=== PATIENT | female | born 2000 | race Caucasian/White ===

== ENCOUNTER 2020-01-28 13:18 | Emergency (ER) | payer SELFPAY ==
[2020-01-28 13:19] VITALS: BP 123/82; PULSE 118; RESP 18; TEMP 37.3; O2SAT 98; BMI 27.4
[2020-01-28 14:08] LABS: Rapid Strep A Test Negative (Negative)
--- NOTE | 2020-01-28 14:35 | CTR_ITS ---
PROCEDURE INFORMATION: Exam: CT Neck With Contrast Exam date and time: 01/28/2020 3:48 PM Age: 19 years old Clinical indication: Painful swallowing and throat pain; Patient HX: C/O sore throat w difficulty swallowing n/v TECHNIQUE: Imaging protocol: Computed tomography images of the neck with intravenous contrast. Radiation optimization: All CT scans at this facility use at least one of these dose optimization techniques: automated exposure control; mA and/or kV adjustment per patient size (includes targeted exams where dose is matched to clinical indication); or iterative reconstruction. Contrast material: OMNI 300; Contrast volume: 95 ml; Contrast route: INTRAVENOUS (IV); COMPARISON: No relevant prior studies available. RADIATION DOSE METRICS: Total DLP (mGy-cm): 580.23 FINDINGS: Sinuses: Mild chronic left maxillary sinusitis. Nasopharynx: Unremarkable. Dental: Incidental note of a dental hubert right 2nd maxillary molar. Oropharynx: Evidence of bilateral palatine tonsillitis without peritonsillar abscess. Both palatine tonsils demonstrate increased enhancement increased volume, left greater than right. Left palatine tonsil measures approximately 34 mm x 18 mm x 20 mm and the right 29 mm x 14 mm x 18 mm. Hypopharynx: Unremarkable. Larynx: Unremarkable. Normal epiglottis. Retropharyngeal space: Unremarkable. Submandibular/Parotid glands: Normal. Glands are normal in size. Thyroid: Normal. No enlarged or calcified nodules. Lymph nodes: Unremarkable. No lymphadenopathy. Trachea: Visualized trachea is unremarkable. Lungs: Unremarkable as visualized. Bones/joints: Scoliosis. No visible evidence of active osseous pathology. Soft tissues: Unremarkable. No significant soft tissue swelling. Other findings: Evidence of mild esophagitis. CT/CT neck w con* [id number] IMPRESSION: 1. Bilateral palatine tonsillitis without peritonsillar abscess. 2. Evidence of mild esophagitis. 3. Incidental note of a dental hubert right 2nd maxillary molar. Radiation Dose CTDIVOL = (mGy): DLP = 580.23 (mGy-cm)
--- NOTE | 2020-01-28 14:39 | ED_ITS ---
HPI - Fever General: Chief Complaint: Fever Stated Complaint: vomiting blood Time Seen by Provider: 01/28/20 14:31 Source: patient Mode of arrival: ambulatory Limitations: no limitations History of Present Illness: HPI Narrative: 19-year-old female states she had a sore throat along with fever over the last 2 days. She has had difficulty swallowing due to pain. She has had fevers as well. States she had 2 episodes of vomiting and states she thinks she had a small amount of blood in her vomitus today. Denies any diarrhea. Denies any worsening or improving factors. MD elicited complaint: fever Associated symptoms: Deny abdominal pain, chills, chest pain, diarrhea, dysuria, headache(s), nausea or vomiting Review of Systems Const: Denies: fever(s), chills, body aches or change in appetite Eyes: Denies: blurry vision or eye discomfort ENMT: Reports: throat pain Card: Denies: chest pain Resp: Denies: dyspnea GI: Denies: abdominal pain, nausea, vomiting or diarrhea : Denies: dysuria Musc: Denies: neck pain or back pain Skin/Breast: Denies: rash Neuro: Denies: headache(s) Psych: Denies: depression Prince/Lymph: Denies: easy bruising All/Imm: Denies: urticaria Physical Exam Const: COMMON NORMALS: no acute distress, patient oriented x3 and healthy appearing HENMT: COMMON NORMALS: normocephalic and atraumatic HEAD & SCALP: normocephalic and atraumatic Eye: COMMON NORMALS: Equal, round and reactive pupils present and EOMs intact bilaterally PUPIL: Yes Equal, round and reactive pupils present Neck/C-Spine: COMMON NORMALS: full ROM and supple Chest: COMMONS NORMALS: normal inspection of the chest and normal palpation of entire chest wall Resp: COMMON NORMALS: normal respiratory effort, No retractions, No use of accessory muscles and clear to auscultation bilaterally AUSCULTATION: clear to auscultation bilaterally Cardio: COMMON NORMALS: regular rate, regular rhythm and No murmurs present (Cardio) RATE: regular rate RHYTHM: regular rhythm GI: COMMON NORMALS: Normal to inspection, nondistended, normoactive bowel sounds present, Soft to palpation, non-tender and no masses PALPATION: Yes Soft to palpation Extremity: COMMON NORMALS: normal to inspection and full ROM Neuro: COMMON NORMALS: patient oriented x3, moves all extremities and no focal motor deficits Psych: COMMON NORMALS: mental status grossly normal, Normal thought process present and cooperative THOUGHT PROCESS: Normal thought process present Skin: COMMON NORMALS: no rashes or lesions noted and no wounds GENERAL SKIN EXAM: no rashes or lesions noted Course Vital Signs: Vital signs: Vital Signs Temperature 99.5 F 01/28/20 14:47 Pulse Rate 109 H 01/28/20 14:47 Respiratory Rate 18 01/28/20 15:03 Blood Pressure 122/84 01/28/20 14:47 Pulse Oximetry 97 01/28/20 14:47 MDM - Fever MDM Narrative: Medical decision making narrative: Pricila presents here with neck pain and CT does show a tonsillitis. We will give her Decadron along with antibiotics. She has no abscess formation. Patient is able to tolerate p.o. here. Patient is to follow-up with PCP in 3 to 5 days and return if worsening. Lab Data: Labs: Lab Results 01/28/20 01/28/20 01/28/20 Range/Units 13:31 14:50 14:50 WBC 10.7 (4.5-13.0) 10^3/ uL RBC 5.16 (4.1-5.3) 10^6/u L Hgb 15.3 (11.5-15.3) g/dL Hct 44.6 (37.0-47.0) % MCV 86.4 (81-99) fL MCH 29.7 (28.0-34.0) pg MCHC 34.3 (30.0-36.0) g/dL RDW 11.6 L (12.1-15.1) % Plt Count 229 (130-400) 10^3/c mm MPV 10.3 (7.4-10.4) fL Neut % (Auto) 68.3 % Lymph % (Auto) 19.6 % Barton % (Auto) 11.3 % Eos % (Auto) 0.1 % Baso % (Auto) 0.5 % Neut # (Auto) 7.34 (1.8-8.0) 10^3/u L Lymph # (Auto) 2.1 (1.5-6.5) 10^3/u L Barton # (Auto) 1.2 H (0.2-0.9) 10^3/u L Eos # (Auto) 0.0 (0.0-0.8) 10^3/u L Baso # (Auto) 0.1 (0.0-0.1) 10^3/u L Nucleated RBC % (a uto) 0 % Nucleated RBCs # 0.0 /100WBC Sodium 134 L (136-145) mmol/L Potassium 3.5 (3.5-5.1) mmol/L Chloride 100 (98-107) mmol/L Carbon Dioxide 19 L (22-29) mmol/L Anion Gap 18.5 (5-19) BUN 13 (6-20) mg/dL Creatinine 0.8 (0.5-0.9) mg/dL GFR Calculation 92.4 (90-130) mL/min Glucose 81 (65-115) mg/dL Calculated Osmolal ity 273 L (285-295) mOsm/k g Calcium 9.2 (8.5-10.5) mg/dL Total Bilirubin 0.3 (0.15-1.2) mg/dL AST 14 (0-32) U/L ALT 10 (0-33) U/L Alkaline Phosphata se 66 (35-105) IU/L Total Protein 8.2 (6.6-8.7) g/dL Albumin 4.3 (3.5-5.2) g/dL Globulin 3.9 (1.3-4.6) g/dL Lipase 25 (13-60) U/L HCG, Qual (Negative) Monoscreen (Negative) Group A Strep Rapi d Negative (Negative) 01/28/20 01/28/20 Range/Units 14:50 14:50 WBC (4.5-13.0) 10^3/ uL RBC (4.1-5.3) 10^6/u L Hgb (11.5-15.3) g/dL Hct (37.0-47.0) % MCV (81-99) fL MCH (28.0-34.0) pg MCHC (30.0-36.0) g/dL RDW (12.1-15.1) % Plt Count (130-400) 10^3/c mm MPV (7.4-10.4) fL Neut % (Auto) % Lymph % (Auto) % Barton % (Auto) % Eos % (Auto) % Baso % (Auto) % Neut # (Auto) (1.8-8.0) 10^3/u L Lymph # (Auto) (1.5-6.5) 10^3/u L Barton # (Auto) (0.2-0.9) 10^3/u L Eos # (Auto) (0.0-0.8) 10^3/u L Baso # (Auto) (0.0-0.1) 10^3/u L Nucleated RBC % (a uto) % Nucleated RBCs # /100WBC Sodium (136-145) mmol/L Potassium (3.5-5.1) mmol/L Chloride (98-107) mmol/L Carbon Dioxide (22-29) mmol/L Anion Gap (5-19) BUN (6-20) mg/dL Creatinine (0.5-0.9) mg/dL GFR Calculation (90-130) mL/min Glucose (65-115) mg/dL Calculated Osmolal ity (285-295) mOsm/k g Calcium (8.5-10.5) mg/dL Total Bilirubin (0.15-1.2) mg/dL AST (0-32) U/L ALT (0-33) U/L Alkaline Phosphata se (35-105) IU/L Total Protein (6.6-8.7) g/dL Albumin (3.5-5.2) g/dL Globulin (1.3-4.6) g/dL Lipase (13-60) U/L HCG, Qual Negative (Negative) Monoscreen Negative (Negative) Group A Strep Rapi d (Negative) Imaging Data^: Other CT: Attestation: I personally reviewed and interpreted this imaging study as follows: Radiologist's impression: [address] [address] [address] Scan Report Signed Patient: Pricila Luciano Unit #: [id number] : 2000 Age/Sex: 19 / F ADM Date: 01/28/20 Loc: ER Room/Bed: Attending Dr: Ordering Provider/Ordering MD: Bailey Fuller MD Date of Service: 01/28/20 Procedure(s): CT neck w con* [id number] Accession Number(s): [id number] Report Number: [id number] PROCEDURE INFORMATION: Exam: CT Neck With Contrast Exam date and time: 01/28/2020 3:48 PM Age: 19 years old Clinical indication: Painful swallowing and throat pain; Patient HX: C/O sore throat w difficulty swallowing n/v TECHNIQUE: Imaging protocol: Computed tomography images of the neck with intravenous contrast. Radiation optimization: All CT scans at this facility use at least one of these dose optimization techniques: automated exposure control; mA and/or kV adjustment per patient size (includes targeted exams where dose is matched to clinical indication); or iterative reconstruction. Contrast material: OMNI 300; Contrast volume: 95 ml; Contrast route: INTRAVENOUS (IV); COMPARISON: No relevant prior studies available. RADIATION DOSE METRICS: Total DLP (mGy-cm): 580.23 FINDINGS: Sinuses: Mild chronic left maxillary sinusitis. Nasopharynx: Unremarkable. Dental: Incidental note of a dental hubert right 2nd maxillary molar. Oropharynx: Evidence of bilateral palatine tonsillitis without peritonsillar abscess. Both palatine tonsils demonstrate increased enhancement increased volume, left greater than right. Left palatine tonsil measures approximately 34 mm x 18 mm x 20 mm and the right 29 mm x 14 mm x 18 mm. Hypopharynx: Unremarkable. Larynx: Unremarkable. Normal epiglottis. Retropharyngeal space: Unremarkable. Submandibular/Parotid glands: Normal. Glands are normal in size. Thyroid: Normal. No enlarged or calcified nodules. Lymph nodes: Unremarkable. No lymphadenopathy. Trachea: Visualized trachea is unremarkable. Lungs: Unremarkable as visualized. Bones/joints: Scoliosis. No visible evidence of active osseous pathology. Soft tissues: Unremarkable. No significant soft tissue swelling. Other findings: Evidence of mild esophagitis. CT/CT neck w con* [id number] IMPRESSION: 1. Bilateral palatine tonsillitis without peritonsillar abscess. 2. Evidence of mild esophagitis. 3. Incidental note of a dental hubert right 2nd maxillary molar. Discharge Plan Discharge Patient Disposition: Home Clinical Impression: Acute infective tonsillitis Qualifiers: Pharyngitis/tonsillitis etiology: unspecified etiology Qualified Code(s): J03.90 - Acute tonsillitis, unspecified Condition: Stable Prescriptions: New Keflex 500 mg capsule 500 mg PO Q6H 7 Days Qty: 28 RF: 0 No Action Tylenol 325 mg Tablet 325 mg PO QID PRN (Reason: Pain) RF: 0 Zyrtec 10 mg Tablet 10 mg PO DAILY RF: 0 Discharge Orders: Discharge Order (Routine); Ordered 01/28/20 Ordered By: Bailey Fuller Referrals: Alton Molina MD [Primary Care Provider] - 1-3 days Discharge Diet: Advance as tolerated Discharge Activity: Resume usual activity Patient Instructions: Tonsillitis (ED) Coding Level of Care Code ED 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
[2020-01-28 14:47] VITALS: BP 122/84; PULSE 109; RESP 20; TEMP 37.5; O2SAT 97
[2020-01-28 14:59] LABS: Basophils # 0.1 10^3/uL (0.0-0.1); Basophils % 0.5 %; Eosinophils % 0.1 %; Hematocrit 44.6 % (37.0-47.0); Hemoglobin 15.3 g/dL (11.5-15.3); Lymphocytes # 2.1 10^3/uL (1.5-6.5); Lymphocytes % 19.6 %; Mean Corpuscular HGB Conc 34.3 g/dL (30.0-36.0); Mean Corpuscular Hemoglobin 29.7 pg (28.0-34.0); Mean Corpuscular Volume 86.4 fL (81-99); Mean Platelet Volume 10.3 fL (7.4-10.4); Monocytes # 1.2 10^3/uL (0.2-0.9); Monocytes % 11.3 %; Neutrophils # 7.34 10^3/uL (1.8-8.0); Neutrophils % 68.3 %; Nucleated Red Blood Cells % 0 %; Platelet Count 229 10^3/cmm (130-400); Red Blood Count 5.16 10^6/uL (4.1-5.3); Red Cell Distribution Width 11.6 % (12.1-15.1); White Blood Count 10.7 10^3/uL (4.5-13.0)
[2020-01-28] MEDS: ondansetron 2 mg/ML SDV 2 mL 4 MG IVP (15:02)
[2020-01-28 15:03] VITALS: RESP 18
[2020-01-28] MEDS: morphine 4 mg/mL SDV 1 mL IVP (15:03)
[2020-01-28] MEDS: sodium chloride 0.9% 1,000 ML 999 ML IV ×2 (15:04→15:53)
[2020-01-28 15:10] LABS: HCG, Serum Qual Negative (Negative)
[2020-01-28 15:23] LABS: Alanine Aminotransferase 10 U/L (0-33); Albumin Level 4.3 g/dL (3.5-5.2); Alkaline Phosphatase 66 IU/L (35-105); Anion Gap 18.5 (5-19); Aspartate Amino Transferase 14 U/L (0-32); Blood Urea Nitrogen 13 mg/dL (6-20); Calcium 9.2 mg/dL (8.5-10.5); Carbon Dioxide 19 mmol/L (22-29); Chloride 100 mmol/L (98-107); Globulin 3.9 g/dL (1.3-4.6); Glomerular Filtration Rate 92.4 mL/min (90-130); Glucose 81 mg/dL (65-115); Lipase 25 U/L (13-60); Osmolality Calculated 273 mOsm/kg (285-295); Potassium 3.5 mmol/L (3.5-5.1); Sodium 134 mmol/L (136-145); Total Bilirubin 0.3 mg/dL (0.15-1.2); Total Protein 8.2 g/dL (6.6-8.7)
[2020-01-28 15:24] LABS: Monoscreen Negative (Negative)
[2020-01-28] MEDS: iohexol 300 mg/mL 100 mL Btl IV (16:00)
[2020-01-28] MEDS: dexamethasone 10 mg/mL INJ IVP (16:46)
[2020-01-28 16:50] VITALS: BP 112/79; PULSE 97; RESP 17; O2SAT 100
[2020-01-28 16:56] LABS: Add Urine Microscopic? YES; Bilirubin Urine Neg (NEGATIVE); Blood Urine Neg (Negative); Glucose Urine UA Norm (Normal); Ketones Urine 2+ (Negative); Leukocyte Esterase Urine Negative (Negative); Nitrate Urine Negative (Negative); Protein Urine Trace (Negative); Urine Appearance Clear (CLEAR); Urine Color Yellow (Yellow); Urobilinogen Urine 1 mg/dL (Negative); pH Urine 5 (5-7)
[2020-01-28 16:58] LABS: Bacteria Urine TRACE; Mucus Urine 2+; Squamous Epithelial Cell Urine 0-4 (0-5)
[2020-01-28 16:59] LABS: Add Urine Culture? No
== END 2020-01-28 16:56 | disposition home or self-care (01) ==
PROVIDERS: Emergency Provider Emergency Medicine; PCP General Practice
DX: J03.90 Acute tonsillitis, unspecified (principal)
CPT/HCPCS: 12345; 70491; 80053; 81001; 83690; 84703; 85025; 86308; 87081; 87880; 96360; 96361; 96374; 96375; 99283; 99284; J1100; J2270; J2405; J7030; Q9967

== ENCOUNTER 2020-02-02 16:16 | Emergency (ER) | payer SELFPAY ==
[2020-02-02] VITALS (8 sets, daily range): BP systolic 112–128; BP diastolic 74–91; PULSE 61–107; RESP 16–18; TEMP 37.2; O2SAT 95–100; BMI 24.7
--- NOTE | 2020-02-02 16:31 | ECG_ITS ---
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 Measurements Intervals [place] Rate: 85 P: 58 MO: 131 QRS: 87 QRSD: 80 T: -36 QT: 346 QTc: 413 Interpretive Statements SINUS RHYTHM MODERATE T-WAVE ABNORMALITY, CONSIDER ANTERIOR ISCHEMIA MODERATE T-WAVE ABNORMALITY, CONSIDER INFERIOR ISCHEMIA Compared to ECG 10/16/2018 21:57:51 Possible ischemia now present Sinus arrhythmia no longer present T-wave abnormality still present Electronically Signed On 02-02-2020 20:10:08 CDT by Qi Sage M.D. [email or web address]
--- NOTE | 2020-02-02 16:32 | USR_ITS ---
PROCEDURE INFORMATION: Exam: US Abdomen, Limited; Right Upper Quadrant Exam date and time: 02/02/2020 5:14 PM Age: 19 years old Clinical indication: Abdominal pain; Acute; Patient HX: Been n/v for several days. TECHNIQUE: Imaging protocol: US abdomen. Real time ultrasound with image documentation. Limited exam focused on the right upper quadrant. COMPARISON: No relevant prior studies available. FINDINGS: Liver: Normal. No masses. The liver measures in length. Gallbladder: Normal. No gallstones. There is no gallbladder wall thickening. There is a negative sonographic Poole's sign. Common bile duct: Normal. No stones. No dilation. Pancreas: Visualized pancreas is unremarkable. Right kidney: Normal. No mass. No hydronephrosis. US/US gall bladder [id number] IMPRESSION: No acute findings.
--- NOTE | 2020-02-02 16:42 | W.ED.GENADLT ---
HPI - General Adult General: Chief complaint: General Medical Stated complaint: vomiting/abd pain Time Seen by Provider: 02/02/20 16:24 Source: patient Mode of arrival: ambulatory Limitations: no limitations History of Present Illness: HPI narrative: Pricila is a nice 19-year-old female who comes in complaining of throat pain, vomiting, chest pain, and upper abdominal pain. Her symptoms is been present for 8 days. Patient was seen here and diagnosed with tonsillitis and placed on Keflex 6 days ago. She states since that time her symptoms have gotten worse with worsening abdominal pain and vomiting. Her throat still hurts and she states she still has significant nausea and vomiting and occasional chest pain. Anytime she eats or drinks makes her symptoms worse. She still has a subjective fever. She got a dose of Decadron and was placed on Keflex but she stopped the Keflex makes her abdominal pain and chest pain worse. Patient states she feels weak and dehydrated. She denies any other complaints at this time. Associated symptoms: Reports chest pain, nausea and vomiting; Deny confusion, diaphoresis, dyspnea, headache(s), malaise, rash, palpitations or syncope Review of Systems Const: Reports: fever(s) and chills; Denies: body aches, fatigue, malaise or diaphoresis Eyes: Denies: change in vision, blurry vision, photophobia, eye discomfort, eye discharge or eye redness ENMT: Reports: throat pain; Denies: odynophagia, hoarseness, swelling of lips/tongue, ear or mastoid pain, ear discharge, change in hearing or nasal discharge Card: Reports: chest pain; Denies: palpitations, irregular heart rhythm, edema, lightheadedness, syncope, pre-syncope, dyspnea on exertion or orthopnea Resp: Denies: dyspnea, productive cough, non-productive cough, wheezing, hemoptysis or chest congestion GI: Reports: abdominal pain, nausea and vomiting; Denies: hematemesis, coffee ground emesis, heartburn, diarrhea, constipation, GI cramping, hematochezia or melena : Denies: flank pain, dysuria, urinary frequency, urinary urgency or hematuria Musc: Denies: neck pain, back pain, extremity pain, extremity swelling, joint pain, joint swelling, joint redness, joint warmth or joint stiffness Skin/Breast: Denies: rash, pruritus, erythema or skin tenderness Neuro: Denies: headache(s), numbness in extremities, weakness in extremities, sensory changes, lack of coordination, difficulty walking, dizziness, vertigo, confusion, Slurred speech present or seizure-like activity Prince/Lymph: Denies: easy bruising, easy bleeding, petechiae, purpura or enlarged lymph nodes All/Imm: Denies: urticaria, throat swelling, tongue swelling, facial swelling or acute wheezing PFSH ED PFSH: Medical History (Updated 02/02/20 @ 22:52 by Rashida Lemon) No pertinent past medical history Surgical History (Updated 02/02/20 @ 16:43 by Rashida Lemon) No pertinent past surgical history Physical Exam Const: COMMON NORMALS: no acute distress, patient oriented x3, no limitations, healthy appearing and well nourished GENERAL APPEARANCE: cooperative, well kempt and well developed HENMT: COMMON NORMALS: normocephalic, atraumatic, external ears normal, EAC's normal and Normal external nose present HEAD & SCALP: normal to inspection, normocephalic and atraumatic FACE & SINUS: normal facial exam and face symmetric NOSE: Normal external nose present and Normal nares present EXTERNAL EAR: Yes external ears normal EXTERNAL AUDITORY CANAL: EAC's normal MOUTH: Normal oral and palatal mucosa present, lip normal, tongue normal and other (Mild erythema in the posterior soft palate. No sign of peritonsillar abscess. No evidence of retropharyngeal abscess. Voice normal without hot potato voice or sign of laryngitis.) Eye: COMMON NORMALS: Equal, round and reactive pupils present and conjunctivae normal GENERAL EYE: appearance normal, both eyes and all related structures ALIGNMENT: Yes alignment normal PERIORBITAL: periorbital findings normal EYELID: eyelids normal CONJUNCTIVA: Yes conjunctivae normal SCLERA: sclerae normal PUPIL: Yes Equal, round and reactive pupils present Neck/C-Spine: COMMON NORMALS: full ROM, no lymphadenopathy, supple, no meningeal signs and no JVD GENERAL: Yes normal visual inspection and Yes trachea midline Chest: COMMONS NORMALS: normal inspection of the chest and normal palpation of entire chest wall Resp: COMMON NORMALS: normal respiratory effort, No retractions, No use of accessory muscles and clear to auscultation bilaterally EFFORT & INSPECTION: Yes able to speak in complete sentences and Yes symmetric chest movement AUSCULTATION: clear to auscultation bilaterally, no crackles, no rales, no rhonchi and no wheezes Cardio: COMMON NORMALS: no JVD, regular rate, regular rhythm, S1 normal heart sound present and S2 normal heart sound present RATE: regular rate RHYTHM: regular rhythm HEART SOUNDS: S1 normal heart sound present, S2 normal heart sound present, no click, no gallops, no murmurs, no rubs and abnormal split S2 GI: COMMON NORMALS: Soft to palpation and No hepatosplenomegaly present PALPATION: Yes Soft to palpation, No Tenderness to palpation present (GI), No Guarding due to palpation present (GI), No Rigid due to palpation, Yes No hepatosplenomegaly present, No Hernia present, No Palpable mass present and No Pulsatile mass present : COMMON NORMALS: Yes no CVA tenderness BLADDER/KIDNEY EXAM: Yes no CVA tenderness EXTERNAL FEMALE EXAM: No Hernia present Back/Pelvis: COMMON NORMALS: no CVA tenderness, thoracic and lumbar spine normal to inspection, no thoracic nor lumbar tenderness and thoraco-lumbar ROM normal Extremity: COMMON NORMALS: normal to inspection, full ROM, capillary refill normal, no joint enlargement, no clubbing, cyanosis or edema and no calf tenderness Neuro: COMMON NORMALS: patient oriented x3, CN's II-XII intact bilaterally, moves all extremities, no focal motor deficits and no sensory deficits noted MENINGEAL SIGNS: Yes no meningeal signs SPEECH: speech normal Psych: COMMON NORMALS: mental status grossly normal, Normal thought process present, cooperative, normal affect, speech normal and activity/motor behavior normal APPEARANCE: Yes well kempt SPEECH: Yes normal speech THOUGHT PROCESS: Normal thought process present Skin: COMMON NORMALS: no rashes or lesions noted, turgor normal, no jaundice, no petechiae and no mottling GENERAL SKIN EXAM: no rashes or lesions noted and turgor normal Course Vital Signs: Vital signs: Vital Signs Temperature 99.0 F 02/02/20 16:23 Pulse Rate 82 02/02/20 23:01 Respiratory Rate 16 02/02/20 23:01 Blood Pressure 112/74 02/02/20 23:01 Pulse Oximetry 98 02/02/20 23:01 MDM - General Adult MDM Narrative: Medical decision making narrative: Pricila symptoms were difficult to pin down but I saw no evidence of obvious clinical explanation of her EKG changes. I still see no definite cause although I did review the EKG with Dr. Garnica who states the patient likely has normal inverted juvenile T waves just in a very at more advanced than most. There is no sign of myocarditis as the patient's troponins have been negative x2. Clinically she did not appear to have a [employer] but as Dr. Fuller had imaged her previously I felt we should image this again but it shows no change. Lymphadenopathy could be reactive to her esophagitis and acid but I will cover her with Zithromax as she is not tolerating Keflex at all. I believe the nausea and vomiting is likely reflux disease and she responded well to a GI cocktail here. I am going to place her on Protonix and have her follow-up with Dr. Ochoa for an EGD. At this time I see no life limb threatening illness and the patient was given instructions on esophagitis. Patient agrees to return should her symptoms change or worsen but at this time she is feeling better would like to be discharged. Lab Data: Attestation: I reviewed the patient's lab results. Labs: Lab Results 02/02/20 02/02/20 02/02/20 Range/Units 17:30 17:30 17:30 WBC 10.1 (4.5-13.0) 10^3/ uL RBC 5.08 (4.1-5.3) 10^6/u L Hgb 14.9 (11.5-15.3) g/dL Hct 43.6 (37.0-47.0) % MCV 85.8 (81-99) fL MCH 29.3 (28.0-34.0) pg MCHC 34.2 (30.0-36.0) g/dL RDW 11.5 L (12.1-15.1) % Plt Count 358 (130-400) 10^3/c mm MPV 10.0 (7.4-10.4) fL Neut % (Auto) 62.8 % Lymph % (Auto) 29.3 % [place] % (Auto) 5.3 % Eos % (Auto) 1.4 % Baso % (Auto) 0.5 % Neut # (Auto) 6.34 (1.8-8.0) 10^3/u L Lymph # (Auto) 3.0 (1.5-6.5) 10^3/u L [place] # (Auto) 0.5 (0.2-0.9) 10^3/u L Eos # (Auto) 0.1 (0.0-0.8) 10^3/u L Baso # (Auto) 0.1 (0.0-0.1) 10^3/u L Nucleated RBC % (a uto) 0 % Nucleated RBCs # 0.0 /100WBC ESR (0-15) mm/hr D-Dimer (0-0.59) ug/mIFE U Sodium 141 (136-145) mmol/L Potassium 3.5 (3.5-5.1) mmol/L Chloride 100 (98-107) mmol/L Carbon Dioxide 21 L (22-29) mmol/L Anion Gap 23.5 H (5-19) BUN 16 (6-20) mg/dL Creatinine 0.6 (0.5-0.9) mg/dL GFR Calculation 128.8 (90-130) mL/min Glucose 73 (65-115) mg/dL Calculated Osmolal ity 287 (285-295) mOsm/k g Calcium 9.0 (8.5-10.5) mg/dL Total Bilirubin 0.5 (0.15-1.2) mg/dL AST 12 (0-32) U/L ALT 12 (0-33) U/L Alkaline Phosphata se 59 (35-105) IU/L Troponin T Baselin e (0-10) ng/L Troponin T 120 Min [place] (0-10) ng/L Delta Troponin T (0-10) ABS# C-Reactive Protein 20.2 H (0.0-4.9) mg/L NT-Pro-B Natriuret Pep (0-125) pg/mL Total Protein 8.3 (6.6-8.7) g/dL Albumin 4.3 (3.5-5.2) g/dL Globulin 4.0 (1.3-4.6) g/dL Lipase 36 (13-60) U/L HCG, Qual Negative (Negative) Urine Color (Yellow) Urine Appearance (CLEAR) Urine pH (5-7) Ur Specific Gravit y (1.005-1.030) Urine Protein (Negative) Urine Glucose (UA) (Normal) Urine Ketones (Negative) Urine Blood (Negative) Urine Nitrate (Negative) Urine Bilirubin (NEGATIVE) Urine Urobilinogen (Negative) mg/dL Ur Leukocyte Amanda ase (Negative) Urine RBC (0-2) /hpf Urine WBC (0-5) /hpf Ur Squamous Epith Cells (0-5) Amorphous Sediment Urine Bacteria (NONE) Urine Mucus H. pylori IgG Anti body (Negative) Monoscreen (Negative) SARS-CoV-2 Ag (Rap id) (Negative) Group A Strep Rapi d (Negative) 02/02/20 02/02/20 02/02/20 Range/Units 17:30 17:30 17:30 WBC (4.5-13.0) 10^3/ uL RBC (4.1-5.3) 10^6/u L Hgb (11.5-15.3) g/dL Hct (37.0-47.0) % MCV (81-99) fL MCH (28.0-34.0) pg MCHC (30.0-36.0) g/dL RDW (12.1-15.1) % Plt Count (130-400) 10^3/c mm MPV (7.4-10.4) fL Neut % (Auto) % Lymph % (Auto) % [place] % (Auto) % Eos % (Auto) % Baso % (Auto) % Neut # (Auto) (1.8-8.0) 10^3/u L Lymph # (Auto) (1.5-6.5) 10^3/u L [place] # (Auto) (0.2-0.9) 10^3/u L Eos # (Auto) (0.0-0.8) 10^3/u L Baso # (Auto) (0.0-0.1) 10^3/u L Nucleated RBC % (a uto) % Nucleated RBCs # /100WBC ESR 79 H (0-15) mm/hr D-Dimer (0-0.59) ug/mIFE U Sodium (136-145) mmol/L Potassium (3.5-5.1) mmol/L Chloride (98-107) mmol/L Carbon Dioxide (22-29) mmol/L Anion Gap (5-19) BUN (6-20) mg/dL Creatinine (0.5-0.9) mg/dL GFR Calculation (90-130) mL/min Glucose (65-115) mg/dL Calculated Osmolal ity (285-295) mOsm/k g Calcium (8.5-10.5) mg/dL Total Bilirubin (0.15-1.2) mg/dL AST (0-32) U/L ALT (0-33) U/L Alkaline Phosphata se (35-105) IU/L Troponin T Baselin e 6 (0-10) ng/L Troponin T 120 Min [place] (0-10) ng/L Delta Troponin T (0-10) ABS# C-Reactive Protein (0.0-4.9) mg/L NT-Pro-B Natriuret Pep (0-125) pg/mL Total Protein (6.6-8.7) g/dL Albumin (3.5-5.2) g/dL Globulin (1.3-4.6) g/dL Lipase (13-60) U/L HCG, Qual (Negative) Urine Color (Yellow) Urine Appearance (CLEAR) Urine pH (5-7) Ur Specific Gravit y (1.005-1.030) Urine Protein (Negative) Urine Glucose (UA) (Normal) Urine Ketones (Negative) Urine Blood (Negative) Urine Nitrate (Negative) Urine Bilirubin (NEGATIVE) Urine Urobilinogen (Negative) mg/dL Ur Leukocyte Amanda ase (Negative) Urine RBC (0-2) /hpf Urine WBC (0-5) /hpf Ur Squamous Epith Cells (0-5) Amorphous Sediment Urine Bacteria (NONE) Urine Mucus H. pylori IgG Anti body Negative (Negative) Monoscreen (Negative) SARS-CoV-2 Ag (Rap id) (Negative) Group A Strep Rapi d (Negative) 02/02/20 02/02/20 02/02/20 Range/Units 17:30 17:30 17:30 WBC (4.5-13.0) 10^3/ uL RBC (4.1-5.3) 10^6/u L Hgb (11.5-15.3) g/dL Hct (37.0-47.0) % MCV (81-99) fL MCH (28.0-34.0) pg MCHC (30.0-36.0) g/dL RDW (12.1-15.1) % Plt Count (130-400) 10^3/c mm MPV (7.4-10.4) fL Neut % (Auto) % Lymph % (Auto) % [place] % (Auto) % Eos % (Auto) % Baso % (Auto) % Neut # (Auto) (1.8-8.0) 10^3/u L Lymph # (Auto) (1.5-6.5) 10^3/u L [place] # (Auto) (0.2-0.9) 10^3/u L Eos # (Auto) (0.0-0.8) 10^3/u L Baso # (Auto) (0.0-0.1) 10^3/u L Nucleated RBC % (a uto) % Nucleated RBCs # /100WBC ESR (0-15) mm/hr D-Dimer 2.07 H (0-0.59) ug/mIFE U Sodium (136-145) mmol/L Potassium (3.5-5.1) mmol/L Chloride (98-107) mmol/L Carbon Dioxide (22-29) mmol/L Anion Gap (5-19) BUN (6-20) mg/dL Creatinine (0.5-0.9) mg/dL GFR Calculation (90-130) mL/min Glucose (65-115) mg/dL Calculated Osmolal ity (285-295) mOsm/k g Calcium (8.5-10.5) mg/dL Total Bilirubin (0.15-1.2) mg/dL AST (0-32) U/L ALT (0-33) U/L Alkaline Phosphata se (35-105) IU/L Troponin T Baselin e (0-10) ng/L Troponin T 120 Min [place] (0-10) ng/L Delta Troponin T (0-10) ABS# C-Reactive Protein (0.0-4.9) mg/L NT-Pro-B Natriuret Pep 12 (0-125) pg/mL Total Protein (6.6-8.7) g/dL Albumin (3.5-5.2) g/dL Globulin (1.3-4.6) g/dL Lipase (13-60) U/L HCG, Qual (Negative) Urine Color (Yellow) Urine Appearance (CLEAR) Urine pH (5-7) Ur Specific Gravit y (1.005-1.030) Urine Protein (Negative) Urine Glucose (UA) (Normal) Urine Ketones (Negative) Urine Blood (Negative) Urine Nitrate (Negative) Urine Bilirubin (NEGATIVE) Urine Urobilinogen (Negative) mg/dL Ur Leukocyte Amanda ase (Negative) Urine RBC (0-2) /hpf Urine WBC (0-5) /hpf Ur Squamous Epith Cells (0-5) Amorphous Sediment Urine Bacteria (NONE) Urine Mucus H. pylori IgG Anti body (Negative) Monoscreen Negative (Negative) SARS-CoV-2 Ag (Rap id) (Negative) Group A Strep Rapi d (Negative) 02/02/20 02/02/20 02/02/20 Range/Units 17:38 18:13 19:28 WBC (4.5-13.0) 10^3/ uL RBC (4.1-5.3) 10^6/u L Hgb (11.5-15.3) g/dL Hct (37.0-47.0) % MCV (81-99) fL MCH (28.0-34.0) pg MCHC (30.0-36.0) g/dL RDW (12.1-15.1) % Plt Count (130-400) 10^3/c mm MPV (7.4-10.4) fL Neut % (Auto) % Lymph % (Auto) % [place] % (Auto) % Eos % (Auto) % Baso % (Auto) % Neut # (Auto) (1.8-8.0) 10^3/u L Lymph # (Auto) (1.5-6.5) 10^3/u L [place] # (Auto) (0.2-0.9) 10^3/u L Eos # (Auto) (0.0-0.8) 10^3/u L Baso # (Auto) (0.0-0.1) 10^3/u L Nucleated RBC % (a uto) % Nucleated RBCs # /100WBC ESR (0-15) mm/hr D-Dimer (0-0.59) ug/mIFE U Sodium (136-145) mmol/L Potassium (3.5-5.1) mmol/L Chloride (98-107) mmol/L Carbon Dioxide (22-29) mmol/L Anion Gap (5-19) BUN (6-20) mg/dL Creatinine (0.5-0.9) mg/dL GFR Calculation (90-130) mL/min Glucose (65-115) mg/dL Calculated Osmolal ity (285-295) mOsm/k g Calcium (8.5-10.5) mg/dL Total Bilirubin (0.15-1.2) mg/dL AST (0-32) U/L ALT (0-33) U/L Alkaline Phosphata se (35-105) IU/L Troponin T Baselin e (0-10) ng/L Troponin T 120 Min [place] 6.00 (0-10) ng/L Delta Troponin T 0 (0-10) ABS# C-Reactive Protein (0.0-4.9) mg/L NT-Pro-B Natriuret Pep (0-125) pg/mL Total Protein (6.6-8.7) g/dL Albumin (3.5-5.2) g/dL Globulin (1.3-4.6) g/dL Lipase (13-60) U/L HCG, Qual (Negative) Urine Color Yellow (Yellow) Urine Appearance Sl hazy (CLEAR) Urine pH 5 (5-7) Ur Specific Gravit y 1.025 (1.005-1.030) Urine Protein Neg (Negative) Urine Glucose (UA) Norm (Normal) Urine Ketones 3+ H (Negative) Urine Blood 2+ H (Negative) Urine Nitrate Negative (Negative) Urine Bilirubin 1+ H (NEGATIVE) Urine Urobilinogen 4 H (Negative) mg/dL Ur Leukocyte Amanda ase Negative (Negative) Urine RBC 5-10 H (0-2) /hpf Urine WBC 0-4 H (0-5) /hpf Ur Squamous Epith Cells 25-40 H (0-5) Amorphous Sediment Not Reportable Urine Bacteria 1+ H (NONE) Urine Mucus 4+ H. pylori IgG Anti body (Negative) Monoscreen (Negative) SARS-CoV-2 Ag (Rap id) (Negative) Group A Strep Rapi d Negative (Negative) 02/02/20 Range/Units 19:42 WBC (4.5-13.0) 10^3/ uL RBC (4.1-5.3) 10^6/u L Hgb (11.5-15.3) g/dL Hct (37.0-47.0) % MCV (81-99) fL MCH (28.0-34.0) pg MCHC (30.0-36.0) g/dL RDW (12.1-15.1) % Plt Count (130-400) 10^3/c mm MPV (7.4-10.4) fL Neut % (Auto) % Lymph % (Auto) % [place] % (Auto) % Eos % (Auto) % Baso % (Auto) % Neut # (Auto) (1.8-8.0) 10^3/u L Lymph # (Auto) (1.5-6.5) 10^3/u L [place] # (Auto) (0.2-0.9) 10^3/u L Eos # (Auto) (0.0-0.8) 10^3/u L Baso # (Auto) (0.0-0.1) 10^3/u L Nucleated RBC % (a uto) % Nucleated RBCs # /100WBC ESR (0-15) mm/hr D-Dimer (0-0.59) ug/mIFE U Sodium (136-145) mmol/L Potassium (3.5-5.1) mmol/L Chloride (98-107) mmol/L Carbon Dioxide (22-29) mmol/L Anion Gap (5-19) BUN (6-20) mg/dL Creatinine (0.5-0.9) mg/dL GFR Calculation (90-130) mL/min Glucose (65-115) mg/dL Calculated Osmolal ity (285-295) mOsm/k g Calcium (8.5-10.5) mg/dL Total Bilirubin (0.15-1.2) mg/dL AST (0-32) U/L ALT (0-33) U/L Alkaline Phosphata se (35-105) IU/L Troponin T Baselin e (0-10) ng/L Troponin T 120 Min [place] (0-10) ng/L Delta Troponin T (0-10) ABS# C-Reactive Protein (0.0-4.9) mg/L NT-Pro-B Natriuret Pep (0-125) pg/mL Total Protein (6.6-8.7) g/dL Albumin (3.5-5.2) g/dL Globulin (1.3-4.6) g/dL Lipase (13-60) U/L HCG, Qual (Negative) Urine Color (Yellow) Urine Appearance (CLEAR) Urine pH (5-7) Ur Specific Gravit y (1.005-1.030) Urine Protein (Negative) Urine Glucose (UA) (Normal) Urine Ketones (Negative) Urine Blood (Negative) Urine Nitrate (Negative) Urine Bilirubin (NEGATIVE) Urine Urobilinogen (Negative) mg/dL Ur Leukocyte Amanda ase (Negative) Urine RBC (0-2) /hpf Urine WBC (0-5) /hpf Ur Squamous Epith Cells (0-5) Amorphous Sediment Urine Bacteria (NONE) Urine Mucus H. pylori IgG Anti body (Negative) Monoscreen (Negative) SARS-CoV-2 Ag (Rap id) Negative (Negative) Group A Strep Rapi d (Negative) Imaging Data^: CXR: Attestation: I personally reviewed and interpreted this imaging study as follows: My impression: No acute cardiopulmonary findings. Scoliosis present. CT Neck: Radiologist's impression: [address] [address] [address] Scan Report Signed Patient: Pricila Luciano Unit #: [id number] : 2000 Age/Sex: 19 / F ADM Date: 02/02/20 Loc: ER Room/Bed: Attending Dr: Ordering Provider/Ordering MD: Rashida Lemon DO Date of Service: 02/02/20 Procedure(s): CT neck w con* [id number] Accession Number(s): [id number] Report Number: [id number] PROCEDURE INFORMATION: Exam: CT Neck With Contrast Exam date and time: 02/02/2020 9:21 PM Age: 19 years old Clinical indication: Throat pain; Additional info: Sore throat TECHNIQUE: Imaging protocol: Computed tomography images of the neck with intravenous contrast. Radiation optimization: All CT scans at this facility use at least one of these dose optimization techniques: automated exposure control; mA and/or kV adjustment per patient size (includes targeted exams where dose is matched to clinical indication); or iterative reconstruction. Contrast material: OMNI 300; Contrast volume: 50 ml; Contrast route: INTRAVENOUS (IV); COMPARISON: CT neck w con* [id number] 01/28/2020 3:49 PM RADIATION DOSE METRICS: Total DLP (mGy-cm): 560.9 FINDINGS: Nasopharynx: There is mild enlargement of the adenoid tissue and tonsils. Dental: Dental hubert right 2nd maxillary molar in left 15 maxillary molar are noted without osteomyelitis. Oropharynx: No fluid collection or Tamie tonsillar abscess. There is asymmetric soft tissue thickening at the right base of the tongue similar to the prior exam. Hypopharynx: Unremarkable. Larynx: The epiglottis is unremarkable. Retropharyngeal space: Unremarkable. Submandibular/Parotid glands: Normal. Glands are normal in size. Thyroid: Normal. No enlarged or calcified nodules. Lymph nodes: Bilateral lymph nodes are noted in the neck unchanged since the prior exam with the largest on the left measuring about 1 cm in short axis. Trachea: Visualized trachea is unremarkable. Lungs: Unremarkable as visualized. Bones/joints: Unremarkable. No acute fracture. Soft tissues: Unremarkable. No significant soft tissue swelling. CT/CT neck w con* [id number] IMPRESSION: 1. Bilateral tonsillitis without peritonsillar abscess. Unchanged mild soft tissue asymmetry of the right base of the tongue and unchanged adenopathy in the upper neck. 2. Dental hubert right 2nd maxillary molar in left 15 maxillary molar are noted without osteomyelitis. Radiation Dose CTDIVOL = (mGy): DLP = 560.9 (mGy-cm) Dictated By: Bruna Hyde Signed By: Bruna Hyde Signed Date/Time: 02/02/202238 DD/ 35 CT Angio Chest with Abdomen Pelvis: Radiologist's impression: [address] [place] [address] CT Scan Report Signed Patient: Pricila Luciano Unit #: [id number] : 2000 Age/Sex: 19 / F ADM Date: 02/02/20 Loc: ER Room/Bed: Attending Dr: Ordering Provider/Ordering MD: Rashida Lemon DO Date of Service: 02/02/20 Procedure(s): CT angio chest w abd pel w con Accession Number(s): [id number] Report Number: [id number] PROCEDURE INFORMATION: Exam: CT Angiography Chest With Contrast Exam date and time: 02/02/2020 9:21 PM Age: 19 years old Clinical indication: Abdominal pain; Generalized; Chest pain; Type not specified; Additional info: Shortness of breath/chest pain/positive d-dimer TECHNIQUE: Imaging protocol: Computed tomographic angiography of the chest with intravenous contrast. 3D rendering (Not supervised by radiologist): MIP and/or 3D reconstructed images were created by the technologist. Radiation optimization: All CT scans at this facility use at least one of these dose optimization techniques: automated exposure control; mA and/or kV adjustment per patient size (includes targeted exams where dose is matched to clinical indication); or iterative reconstruction. Contrast material: OMNI 350; Contrast volume: 95 ml; Contrast route: INTRAVENOUS (IV); COMPARISON: CR XR chest 1V portable [id number] 02/02/2020 5:48 PM RADIATION DOSE METRICS: Total DLP (mGy-cm): 1086.07 FINDINGS: Pulmonary arteries: There is no pulmonary embolus. Aorta: Unremarkable. No aortic aneurysm. No aortic dissection. Lungs: There is some mild ground-glass opacity with a tree-in-bud appearance in the lungs compatible with mild pneumonitis or edema. There is no lobar consolidation. There is a 4 mm subpleural calcified granuloma right lung image 286. Pleural space: Unremarkable. No pneumothorax. No pleural effusion. Heart: Unremarkable. No cardiomegaly. No pericardial effusion. Mediastinal space: There is prominent wall thickening of the distal esophagus that may reflect lack of distention, esophageal neoplasm or mild wall thickening due to esophagitis. Lymph nodes: There are several lymph nodes adjacent to the gastroesophageal junction measuring up to 14 mm in short axis. No adenopathy is identified in the axilla, mediastinum or yarelis. Bones/joints: Unremarkable. No acute fracture. Soft tissues: Unremarkable. IMPRESSION: 1. There is no pulmonary embolus. 2. There is prominent wall thickening of the distal esophagus that may reflect lack of distention, esophageal neoplasm or mild wall thickening due to esophagitis. There are several lymph nodes adjacent to the gastroesophageal junction measuring up to 14 mm in short axis. Follow-up with endoscopy is recommended. 3. There is some mild ground-glass opacity with a tree-in-bud appearance in the lungs compatible with mild pneumonitis or edema. PROCEDURE INFORMATION: Exam: CT Abdomen And Pelvis With Contrast Exam date and time: 02/02/2020 9:21 PM Age: 19 years old Clinical indication: Abdominal pain; Generalized; Chest pain; Type not specified; Additional info: Shortness of breath/chest pain/positive d-dimer TECHNIQUE: Imaging protocol: Computed tomography of the abdomen and pelvis with intravenous contrast. Radiation optimization: All CT scans at this facility use at least one of these dose optimization techniques: automated exposure control; mA and/or kV adjustment per patient size (includes targeted exams where dose is matched to clinical indication); or iterative reconstruction. Contrast material: OMNI 350; Contrast volume: 95 ml; Contrast route: INTRAVENOUS (IV); COMPARISON: CR XR chest 1V portable [id number] 02/02/2020 5:48 PM RADIATION DOSE METRICS: Total DLP (mGy-cm): 1086.07 FINDINGS: Mediastinal space: A small hiatal hernia is present. There is prominent wall thickening of the distal esophagus that may reflect lack of distention, esophageal neoplasm or mild wall thickening due to esophagitis. Liver: Unremarkable.No mass. Gallbladder and bile ducts: Normal. No calcified stones. No ductal dilation. Pancreas: Normal. No ductal dilation. Spleen: Normal. No splenomegaly. Adrenals: Normal. No mass. Kidneys and ureters: There is no evidence of hydronephrosis. There is no evidence of renal calcifications. Stomach and bowel: There is no evidence of intestinal perforation or obstruction. Appendix: A normal appendix is identified. Intraperitoneal space: There is a trace amount of fluid in the pelvis. Vasculature: Unremarkable.No abdominal aortic aneurysm. Lymph nodes: There are several lymph nodes adjacent to the gastroesophageal junction measuring up to 14 mm in short axis. No additional adenopathy in the abdomen or pelvis. Bladder: Unremarkable as visualized. Reproductive: Uterus and ovaries are unremarkable. There is a tampon in the vagina. Bones/joints: There is dextroscoliosis of the thoracic spine. There is levoscoliosis of the lumbar spine. Soft tissues: Unremarkable. CT/CT angio chest w abd pel w con IMPRESSION: 1. There is prominent wall thickening of the distal esophagus that may reflect lack of distention, esophageal neoplasm or mild wall thickening due to esophagitis. There are several lymph nodes adjacent to the gastroesophageal junction measuring up to 14 mm in short axis. Follow-up with endoscopy is recommended. 2. No additional acute abnormality. No bowel thickening or inflammatory changes. No hydronephrosis. Radiation Dose CTDIVOL = (mGy): DLP = 1086.07 1086.07 (mGy-cm) Dictated By: Bruna Hyde Signed By: Bruna Hyde Signed Date/Time: 02/02/202232 DD/ 31 EKG Data^: EKG 1: Attestation: I personally reviewed and interpreted this EKG as follows: EKG interpretation date: 02/02/20 EKG interpretation time: 17:16 Interpretation: Normal sinus rhythm at 85 beats a minute, T wave inversions in inferior leads as well as V3 through V6. No ST segment elevation. No blocks, normal intervals. No old for comparison. Computer generated interpretation: Gallbladder Ultrasound 02/02/20 16:32 IMPRESSION: No acute findings. Chest X-Ray 02/02/20 17:46 IMPRESSION: No active pulmonary disease. Neck CT 02/02/20 20:21 IMPRESSION: 1. Bilateral tonsillitis without peritonsillar abscess. Unchanged mild soft tissue asymmetry of the right base of the tongue and unchanged adenopathy in the upper neck. 2. Dental hubert right 2nd maxillary molar in left 15 maxillary molar are noted without osteomyelitis. Radiation Dose CTDIVOL = (mGy): DLP = 560.9 (mGy-cm) Chest/Abdomen/Pelvis CT 02/02/20 20:22 IMPRESSION: 1. There is prominent wall thickening of the distal esophagus that may reflect lack of distention, esophageal neoplasm or mild wall thickening due to esophagitis. There are several lymph nodes adjacent to the gastroesophageal junction measuring up to 14 mm in short axis. Follow-up with endoscopy is recommended. 2. No additional acute abnormality. No bowel thickening or inflammatory changes. No hydronephrosis. Radiation Dose CTDIVOL = (mGy): DLP = 1086.07~1086.07 (mGy-cm) EKG 2: Attestation: I personally reviewed and interpreted this EKG as follows: EKG interpretation date: 02/02/20 EKG interpretation time: 20:28 Interpretation: Normal sinus rhythm at 82 beats a minute, left axis deviation, T waves inverted V2 through V6. T wave inversions present previously have resolved Computer generated interpretation: Gallbladder Ultrasound 02/02/20 16:32 IMPRESSION: No acute findings. Chest X-Ray 02/02/20 17:46 IMPRESSION: No active pulmonary disease. Neck CT 02/02/20 20:21 IMPRESSION: 1. Bilateral tonsillitis without peritonsillar abscess. Unchanged mild soft tissue asymmetry of the right base of the tongue and unchanged adenopathy in the upper neck. 2. Dental hubert right 2nd maxillary molar in left 15 maxillary molar are noted without osteomyelitis. Radiation Dose CTDIVOL = (mGy): DLP = 560.9 (mGy-cm) Chest/Abdomen/Pelvis CT 02/02/20 20:22 IMPRESSION: 1. There is prominent wall thickening of the distal esophagus that may reflect lack of distention, esophageal neoplasm or mild wall thickening due to esophagitis. There are several lymph nodes adjacent to the gastroesophageal junction measuring up to 14 mm in short axis. Follow-up with endoscopy is recommended. 2. No additional acute abnormality. No bowel thickening or inflammatory changes. No hydronephrosis. Radiation Dose CTDIVOL = (mGy): DLP = 1086.07~1086.07 (mGy-cm) Discharge Plan Discharge Patient Disposition: Home Clinical Impression: Esophagitis with gastritis Acute tonsillitis Qualifiers: Pharyngitis/tonsillitis etiology: unspecified etiology Qualified Code(s): J03.90 - Acute tonsillitis, unspecified Condition: Stable Prescriptions: New Protonix 40 mg tablet,delayed release (DR/EC) 40 mg PO BID 14 Days Qty: 28 RF: 0 Zithromax Z-Santiago 250 mg tablet See Rx Instructions .ROUTE .COMPLEX Qty: 6 RF: 0 Zofran 4 mg tablet 4 mg PO Q6H PRN (Reason: nausea and vomiting) Qty: 20 RF: 0 No Action cetirizine [Zyrtec] 10 mg Tablet 10 mg PO DAILY RF: 0 cephalexin [Keflex] 500 mg capsule 500 mg PO Q6H 7 Days Qty: 28 RF: 0 ibuprofen 200 mg Tablet 200 - 400 mg PO PRN RF: 0 Discharge Orders: Discharge Order (Routine); Ordered 02/02/20 Ordered By: Rashida Lemon Referrals: Willie Ochoa MD [Physician] - 4-7 days Alton Molina MD [Primary Care Provider] - Discharge Diet: Advance as tolerated and Clear Liquid Discharge Activity: Increase activity as tolerated Patient Instructions: Gastroesophageal Reflux Disease (ED) Activity Restrictions/Additional Instructions: Please return to the ER immediately for any of the signs or symptoms listed on your discharge instruction sheets, worsening/changing of your symptoms, you are not getting better as quickly as expected, or for ANY other cause or concerns. Follow a clear liquid diet until your pain is resolved then slowly advance it from clear liquids to soft foods ultimately back to a normal diet as you can tolerate. Take the medications as I have prescribed and stop the Keflex previously prescribed you. Be certain to follow-up with Dr. Ochoa as the thickening seen on your CT scan will need to be rechecked with a endoscopy at some point in the future. If your symptoms worsen or change at all please return to the ER immediately for recheck. Avoid NSAID medication such as Motrin, Aleve, ibuprofen as this will make your esophagitis worse. Discharge Date/Time: 02/02/20 23:04 Coding Level of Care Code ED Clicker Operator for Chg Fwd Exam Comprehensive
[2020-02-02] MEDS: ondansetron 2 mg/ML SDV 2 mL 4 MG IVP (17:00)
[2020-02-02] MEDS: morphine 4 mg/mL SDV 1 mL IVP (17:05)
[2020-02-02 17:41] LABS: Basophils # 0.1 10^3/uL (0.0-0.1); Basophils % 0.5 %; Eosinophils # 0.1 10^3/uL (0.0-0.8); Eosinophils % 1.4 %; Hematocrit 43.6 % (37.0-47.0); Hemoglobin 14.9 g/dL (11.5-15.3); Lymphocytes % 29.3 %; Mean Corpuscular HGB Conc 34.2 g/dL (30.0-36.0); Mean Corpuscular Hemoglobin 29.3 pg (28.0-34.0); Mean Corpuscular Volume 85.8 fL (81-99); Monocytes # 0.5 10^3/uL (0.2-0.9); Monocytes % 5.3 %; Neutrophils # 6.34 10^3/uL (1.8-8.0); Neutrophils % 62.8 %; Nucleated Red Blood Cells % 0 %; Platelet Count 358 10^3/cmm (130-400); Red Blood Count 5.08 10^6/uL (4.1-5.3); Red Cell Distribution Width 11.5 % (12.1-15.1); White Blood Count 10.1 10^3/uL (4.5-13.0)
--- NOTE | 2020-02-02 17:46 | XRR_ITS ---
PROCEDURE INFORMATION: Exam: XR Chest, 1 View Exam date and time: 02/02/2020 6:04 PM Age: 19 years old Clinical indication: Dyspnea; Additional info: Chest pain TECHNIQUE: Imaging protocol: XR of the chest Views: 1 view. COMPARISON: No relevant prior studies available. FINDINGS: Lungs: Unremarkable. No consolidation. Pleural space: Unremarkable. No pleural effusion. No pneumothorax. Heart/Mediastinum: Unremarkable. No cardiomegaly. Bones/joints: There is dextroscoliosis. XR/XR chest 1V portable [id number] IMPRESSION: No active pulmonary disease.
[2020-02-02 17:53] LABS: HCG, Serum Qual Negative (Negative)
[2020-02-02 17:59] LABS: Add Urine Microscopic? YES; Bilirubin Urine 1+ (NEGATIVE); Blood Urine 2+ (Negative); Glucose Urine UA Norm (Normal); Ketones Urine 3+ (Negative); Leukocyte Esterase Urine Negative (Negative); Nitrate Urine Negative (Negative); Protein Urine Neg (Negative); Specific Gravity, Urine 1.025 (1.005-1.030); Urine Appearance SL Hazy (CLEAR); Urine Color Yellow (Yellow); Urobilinogen Urine 4 mg/dL (Negative); pH Urine 5 (5-7)
[2020-02-02 18:00] LABS: Alanine Aminotransferase 12 U/L (0-33); Albumin Level 4.3 g/dL (3.5-5.2); Alkaline Phosphatase 59 IU/L (35-105); Anion Gap 23.5 (5-19); Aspartate Amino Transferase 12 U/L (0-32); Blood Urea Nitrogen 16 mg/dL (6-20); C Reactive Protein 20.2 mg/L (0.0-4.9); Carbon Dioxide 21 mmol/L (22-29); Chloride 100 mmol/L (98-107); Glomerular Filtration Rate 128.8 mL/min (90-130); Glucose 73 mg/dL (65-115); Lipase 36 U/L (13-60); Osmolality Calculated 287 mOsm/kg (285-295); Potassium 3.5 mmol/L (3.5-5.1); Sodium 141 mmol/L (136-145); Total Bilirubin 0.5 mg/dL (0.15-1.2); Total Protein 8.3 g/dL (6.6-8.7)
[2020-02-02 18:03] LABS: Troponin(5th) Baseline 6 ng/L (0-10)
[2020-02-02 18:10] LABS: Add Urine Culture? No; Bacteria Urine 1+; Mucus Urine 4+; Squamous Epithelial Cell Urine 25-40 (0-5); WBC Urine 0-4 /hpf (0-5)
[2020-02-02 18:12] LABS: Monoscreen Negative (Negative)
[2020-02-02 18:15] LABS: H. Pylori IgG Antibody Negative (Negative)
[2020-02-02 18:24] LABS: Slide Review Slide Review Perform
[2020-02-02 18:43] LABS: Erythrocyte Sedimentation Rate 79 mm/hr (0-15)
--- NOTE | 2020-02-02 18:46 | PC.NURSE ---
ATTEMPTED TO COVID SWAB PT PT REFUSED DR. DE SANTIAGO INFORMED VERBALIZED UNDERSTANDING NO FURTHER ORDERS.
[2020-02-02 19:11] LABS: Rapid Strep A Test Negative (Negative)
--- NOTE | 2020-02-02 19:23 | ECG_ITS ---
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 Measurements Intervals Ash Rate: 82 P: 2 IN: 133 QRS: -79 QRSD: 85 T: 34 QT: 380 QTc: 444 Interpretive Statements SINUS RHYTHM LEFT AXIS DEVIATION [QRS AXIS < -30] POSSIBLE RIGHT VENTRICULAR CONDUCTION DELAY [RSR (QR) IN V1/V2] MODERATE T-WAVE ABNORMALITY, CONSIDER ANTEROLATERAL ISCHEMIA [-0.1+ mV T WAVE IN V3-V6] Compared to ECG 02/02/2020 17:16:21 Left-axis deviation now present T-wave abnormality still present Possible ischemia still present Electronically Signed On 02-02-2020 20:48:16 CDT by Qi Sage M.D. [id number]
[2020-02-02 19:35] LABS: NT Pro B Type Natriuretic Pept 12 pg/mL (0-125)
[2020-02-02] MEDS: sodium chloride 0.9% 1,000 ML 999 ML IV (19:43)
[2020-02-02] MEDS: cefTRIAXone 1,000 MG in sodium chloride 0.9% (plus) 50 ML 100 MG IV (19:43)
[2020-02-02 20:01] LABS: Troponin 5 2HR Delta 0 ABS# (0-10)
[2020-02-02 20:06] LABS: SARS Covid-2 Antigen Negative (Negative)
[2020-02-02 20:17] LABS: D Dimer 2.07 ug/mIFEU (0-0.59)
--- NOTE | 2020-02-02 20:21 | CTR_ITS ---
PROCEDURE INFORMATION: Exam: CT Neck With Contrast Exam date and time: 02/02/2020 9:21 PM Age: 19 years old Clinical indication: Throat pain; Additional info: Sore throat TECHNIQUE: Imaging protocol: Computed tomography images of the neck with intravenous contrast. Radiation optimization: All CT scans at this facility use at least one of these dose optimization techniques: automated exposure control; mA and/or kV adjustment per patient size (includes targeted exams where dose is matched to clinical indication); or iterative reconstruction. Contrast material: OMNI 300; Contrast volume: 50 ml; Contrast route: INTRAVENOUS (IV); COMPARISON: CT neck w con* [id number] 01/28/2020 3:49 PM RADIATION DOSE METRICS: Total DLP (mGy-cm): 560.9 FINDINGS: Nasopharynx: There is mild enlargement of the adenoid tissue and tonsils. Dental: Dental hubert right 2nd maxillary molar in left 15 maxillary molar are noted without osteomyelitis. Oropharynx: No fluid collection or Tamie tonsillar abscess. There is asymmetric soft tissue thickening at the right base of the tongue similar to the prior exam. Hypopharynx: Unremarkable. Larynx: The epiglottis is unremarkable. Retropharyngeal space: Unremarkable. Submandibular/Parotid glands: Normal. Glands are normal in size. Thyroid: Normal. No enlarged or calcified nodules. Lymph nodes: Bilateral lymph nodes are noted in the neck unchanged since the prior exam with the largest on the left measuring about 1 cm in short axis. Trachea: Visualized trachea is unremarkable. Lungs: Unremarkable as visualized. Bones/joints: Unremarkable. No acute fracture. Soft tissues: Unremarkable. No significant soft tissue swelling. CT/CT neck w con* [id number] IMPRESSION: 1. Bilateral tonsillitis without peritonsillar abscess. Unchanged mild soft tissue asymmetry of the right base of the tongue and unchanged adenopathy in the upper neck. 2. Dental hubert right 2nd maxillary molar in left 15 maxillary molar are noted without osteomyelitis. Radiation Dose CTDIVOL = (mGy): DLP = 560.9 (mGy-cm)
--- NOTE | 2020-02-02 20:22 | CTR_ITS ---
PROCEDURE INFORMATION: Exam: CT Angiography Chest With Contrast Exam date and time: 02/02/2020 9:21 PM Age: 19 years old Clinical indication: Abdominal pain; Generalized; Chest pain; Type not specified; Additional info: Shortness of breath/chest pain/positive d-dimer TECHNIQUE: Imaging protocol: Computed tomographic angiography of the chest with intravenous contrast. 3D rendering (Not supervised by radiologist): MIP and/or 3D reconstructed images were created by the technologist. Radiation optimization: All CT scans at this facility use at least one of these dose optimization techniques: automated exposure control; mA and/or kV adjustment per patient size (includes targeted exams where dose is matched to clinical indication); or iterative reconstruction. Contrast material: OMNI 350; Contrast volume: 95 ml; Contrast route: INTRAVENOUS (IV); COMPARISON: CR XR chest 1V portable [id number] 02/02/2020 5:48 PM RADIATION DOSE METRICS: Total DLP (mGy-cm): 1086.07 FINDINGS: Pulmonary arteries: There is no pulmonary embolus. Aorta: Unremarkable. No aortic aneurysm. No aortic dissection. Lungs: There is some mild ground-glass opacity with a tree-in-bud appearance in the lungs compatible with mild pneumonitis or edema. There is no lobar consolidation. There is a 4 mm subpleural calcified granuloma right lung image 286. Pleural space: Unremarkable. No pneumothorax. No pleural effusion. Heart: Unremarkable. No cardiomegaly. No pericardial effusion. Mediastinal space: There is prominent wall thickening of the distal esophagus that may reflect lack of distention, esophageal neoplasm or mild wall thickening due to esophagitis. Lymph nodes: There are several lymph nodes adjacent to the gastroesophageal junction measuring up to 14 mm in short axis. No adenopathy is identified in the axilla, mediastinum or yarelis. Bones/joints: Unremarkable. No acute fracture. Soft tissues: Unremarkable. IMPRESSION: 1. There is no pulmonary embolus. 2. There is prominent wall thickening of the distal esophagus that may reflect lack of distention, esophageal neoplasm or mild wall thickening due to esophagitis. There are several lymph nodes adjacent to the gastroesophageal junction measuring up to 14 mm in short axis. Follow-up with endoscopy is recommended. 3. There is some mild ground-glass opacity with a tree-in-bud appearance in the lungs compatible with mild pneumonitis or edema. PROCEDURE INFORMATION: Exam: CT Abdomen And Pelvis With Contrast Exam date and time: 02/02/2020 9:21 PM Age: 19 years old Clinical indication: Abdominal pain; Generalized; Chest pain; Type not specified; Additional info: Shortness of breath/chest pain/positive d-dimer TECHNIQUE: Imaging protocol: Computed tomography of the abdomen and pelvis with intravenous contrast. Radiation optimization: All CT scans at this facility use at least one of these dose optimization techniques: automated exposure control; mA and/or kV adjustment per patient size (includes targeted exams where dose is matched to clinical indication); or iterative reconstruction. Contrast material: OMNI 350; Contrast volume: 95 ml; Contrast route: INTRAVENOUS (IV); COMPARISON: CR XR chest 1V portable [id number] 02/02/2020 5:48 PM RADIATION DOSE METRICS: Total DLP (mGy-cm): 1086.07 FINDINGS: Mediastinal space: A small hiatal hernia is present. There is prominent wall thickening of the distal esophagus that may reflect lack of distention, esophageal neoplasm or mild wall thickening due to esophagitis. Liver: Unremarkable.No mass. Gallbladder and bile ducts: Normal. No calcified stones. No ductal dilation. Pancreas: Normal. No ductal dilation. Spleen: Normal. No splenomegaly. Adrenals: Normal. No mass. Kidneys and ureters: There is no evidence of hydronephrosis. There is no evidence of renal calcifications. Stomach and bowel: There is no evidence of intestinal perforation or obstruction. Appendix: A normal appendix is identified. Intraperitoneal space: There is a trace amount of fluid in the pelvis. Vasculature: Unremarkable.No abdominal aortic aneurysm. Lymph nodes: There are several lymph nodes adjacent to the gastroesophageal junction measuring up to 14 mm in short axis. No additional adenopathy in the abdomen or pelvis. Bladder: Unremarkable as visualized. Reproductive: Uterus and ovaries are unremarkable. There is a tampon in the vagina. Bones/joints: There is dextroscoliosis of the thoracic spine. There is levoscoliosis of the lumbar spine. Soft tissues: Unremarkable. CT/CT angio chest w abd pel w con IMPRESSION: 1. There is prominent wall thickening of the distal esophagus that may reflect lack of distention, esophageal neoplasm or mild wall thickening due to esophagitis. There are several lymph nodes adjacent to the gastroesophageal junction measuring up to 14 mm in short axis. Follow-up with endoscopy is recommended. 2. No additional acute abnormality. No bowel thickening or inflammatory changes. No hydronephrosis. Radiation Dose CTDIVOL = (mGy): DLP = 1086.07~1086.07 (mGy-cm)
[2020-02-02] MEDS: iohexol 350 mg/mL 100 mL Btl IV (22:10)
[2020-02-02] MEDS: iohexol 300 mg/mL 100 mL Btl IV (22:11)
[2020-02-02] MEDS: lidocaine 2% viscous 15 ML, aluminum-mag hydrox-simethicon 30 ML, sucralfate oral liq 1 GM PO (22:51)
[2020-02-02] MEDS: pantoprazole 40 mg SDV 80 MG IVP (22:55)
== END 2020-02-02 23:04 | disposition home or self-care (01) ==
PROVIDERS: Emergency Provider Emergency Medicine; PCP General Practice
DX: K20.8 Other esophagitis (principal); K29.70 Gastritis, unspecified, without bleeding; J03.90 Acute tonsillitis, unspecified
CPT/HCPCS: 12345; 70491; 71045; 71275; 74177; 76705; 80053; 81001; 83690; 83880; 84484; 84703; 85025; 85378; 85651; 86140; 86308; 86677; 87081; 87426; 87880; 93005; 96365; 96375; 99284; C9113; J0696; J2270; J2405; J7030; Q9967